=== PATIENT | male | born 1985 | race Caucasian/White ===

== ENCOUNTER 2018-08-27 10:32 | Emergency (ER) | payer SELFPAY ==
[2018-08-27 11:14] LABS: Absolute Lymphocytes (CBC) 2.3 K/uL (0.7-4.9); Absolute Monocytes 0.6 K/uL (0.1-1.3); Absolute Neutrophil 4.7 K/uL (1.8-8.0); Basophils % 0.9 % (0-1.3); Eosinophils % 0.8 % (0-4.4); Lymphocytes % 29.5 % (15.3-44.8); MPV 8.5 fL (7.6-11.3); Monocytes % 7.7 % (3.3-12.3); RBC Red Blood Cell Count 4.96 M/uL (4.33-5.43)
[2018-08-27] MEDS ORDERED: HYDROCODONE/APAP 7.5/325 MG TAB ONE (11:17)
[2018-08-27 11:28] LABS: Potassium 4.1 mmol/L (3.5-5.1)
--- NOTE | 2018-08-27 11:34 | RAD REPORT ---
EXAM DESCRIPTION: US - Scrotum Testicles - 08/27/2018 11:25 am CLINICAL HISTORY: scrotal pain COMPARISON: No comparisons FINDINGS: The right testicle 1.8 x 1.7 x 0.7 cm. No intratesticular masses or evidence of testicular torsion. The left testicle 1.5 x 1.5 x 0.8 cm.. No intratesticular masses or evidence of testicular torsion. Both testicles are small in size for age. No pathologic fluid collections. IMPRESSION: Both testicles appear small in size for age, without evidence of torsion or mass.
[2018-08-27 11:48] LABS: Urine Blood 2+ (NEG); Urine Glucose NEGATIVE (NEG); Urine Protein NEGATIVE (NEG)
--- NOTE | 2018-08-27 12:59 | ER ---
Nurse's Notes [facility] Name: Og Watters Age: 32 yrs Sex: Male : 1985 Arrival Date: 08/27/2018 Time: 10:36 Bed 14 Private MD: Diagnosis: Scrotal pain;Hematuria Presentation: 08/27 10:41 Presenting complaint: Patient states: "I had some blood in my urine on Monday and aa5 today". Pt states "I also had a couple of episodes of blood in the stool today". Pt also c/o of testicular pain with touch. 10:41 Transition of care: patient was not received from another setting of care. Onset of aa5 symptoms was August 2018. Risk Assessment: Do you want to hurt yourself or someone else? Patient reports no desire to harm self or others. Initial Sepsis Screen: Does the patient meet any 2 criteria? No. Patient's initial sepsis screen is negative. Does the patient have a suspected source of infection? No. Patient's initial sepsis screen is negative. Care prior to arrival: None. 10:41 Acuity: NESTOR 3 aa5 10:41 Method Of Arrival: Ambulatory aa5 Historical: - Allergies: 10:49 PENICILLINS; aa5 10:49 Augmentin; aa5 10:49 Amoxicillin; aa5 - PMHx: 10:49 "spots in prostate"; aa5 - PSHx: 10:49 Appendectomy; left knee; aa5 - Immunization history:: Adult Immunizations unknown. - Social history:: Smoking status: Patient uses tobacco products, smokes one-half pack cigarettes per day. - Ebola Screening: : No symptoms or risks identified at this time. Screenin:16 Abuse screen: Denies threats or abuse. Denies injuries from another. Nutritional jl7 screening: No deficits noted. Tuberculosis screening: No symptoms or risk factors identified. Fall Risk None identified. Assessment: 11:16 General: Appears in no apparent distress. uncomfortable, Behavior is calm, cooperative, jl7 appropriate for age. Pain: Complains of pain in scrotum Pain currently is 7 out of 10 on a pain scale. Pain began years ago. Is continuous. Neuro: Level of Consciousness is awake, alert, obeys commands, Oriented to person, place, time, situation. Cardiovascular: Patient's skin is warm and dry. Respiratory: Airway is patent Respiratory effort is even, unlabored, Respiratory pattern is regular, symmetrical. GI: No signs and/or symptoms were reported involving the gastrointestinal system. : Reports pain in bilateral testicle, blood in urine. EENT: No signs and/or symptoms were reported regarding the EENT system. Derm: Skin is pink, warm \\T\\ dry. Musculoskeletal: No signs and/or symptoms reported regarding the musculoskeletal system. 12:00 Reassessment: Patient appears in no apparent distress at this time. Patient and/or jl7 family updated on plan of care and expected duration. Pain level reassessed. Patient is alert, oriented x 3, equal unlabored respirations, skin warm/dry/pink. Patient states symptoms have improved. 13:00 Reassessment: Patient appears in no apparent distress at this time. No changes from jl7 previously documented assessment. Patient and/or family updated on plan of care and expected duration. Pain level reassessed. Patient is alert, oriented x 3, equal unlabored respirations, skin warm/dry/pink. Vital Signs: 10:43 BP 150 / 89; Pulse 54; Resp 16 S; Temp 97.9(TE); Pulse Ox 100% on R/A; Weight 77.11 kg aa5 (R); Height 5 ft. 8 in. (172.72 cm) (R); Pain 0/10; 12:00 BP 120 / 77; Pulse 49; Resp 16 S; Pulse Ox 98% on R/A; Pain 5/10; jl7 13:00 BP 117 / 69; Pulse 62; Resp 16 S; Pulse Ox 98% on R/A; jl7 10:43 Body Mass Index 25.85 (77.11 kg, 172.72 cm) aa5 ED Course: 10:36 Patient arrived in ED. rg4 10:37 Alvin Johnson MD is Attending Physician. kdr 10:41 Arm band placed on Patient placed in an exam room, on a stretcher. aa5 10:46 Pierre Conner RN is Primary Nurse. jl7 10:48 Triage completed. aa5 11:16 Patient has correct armband on for positive identification. Placed in gown. Bed in low jl7 position. Call light in reach. Side rails up X 1. Pulse ox on. NIBP on. Warm blanket given. 11:16 Initial lab(s) drawn, by me, sent to lab. Urine collected: clean catch specimen, clear. jl7 11:23 Scrotum Testicles US In Process Unspecified. EDMS 11:30 Served as a scrum master during rectal exam. jl7 11:32 Urine Dipstick-Ancillary Sent. 5 11:32 Urine Dipstick--Ancillary (enter results) Sent. [facility] 12:56 Radha Lyles MD is Referral Physician. [facility] 13:32 Patient did not have IV access during this emergency room visit. jl7 Administered Medications: 11:09 Drug: [place] (7.5 mg-325 mg) 1 tabs Route: PO; jl7 12:00 Follow up: Response: No adverse reaction; Pain is decreased jl7 13:00 Drug: Bactrim (160 mg-800 mg (DS) 1 tablet Route: PO; jl7 13:30 Follow up: Response: No adverse reaction [facility] Outcome: 12:57 Discharge ordered by . [facility] 13:32 Discharged to home ambulatory. [facility] 13:32 Condition: stable 13:32 Discharge instructions given to patient, Instructed on discharge instructions, follow up and referral plans. medication usage, Demonstrated understanding of instructions, follow-up care, medications, Prescriptions given X 2. 13:33 Patient left the ED. jl7 Signatures: Dispatcher [employer] [facility] Alvin Johnson MD MD kdr Calderon, Audri, RN RN [email or web address] Liz Godfrey Maria [email or web address] Leal, Jahala, RN RN jl7
--- NOTE | 2018-08-27 12:59 | EDPHYS ---
Physician Documentation [facility] Name: Og Watters Age: 32 yrs Sex: Male : 1985 Arrival Date: 08/27/2018 Time: 10:36 Bed 14 Private MD: ED Physician Alvin Johnson HPI: 08/27 10:56 This 32 yrs old Male presents to ER via Ambulatory with complaints of Blood kdr In Urine. 10:56 The patient presents with scrotal pain, of both sides, in the area of the epidydimis, kdr without swelling, without erythema, tenderness, that is moderate, of the left inguinal area, in the area of the epidydimis. Onset: The symptoms/episode began/occurred gradually, 3 day(s) ago. Modifying factors: The symptoms are alleviated by nothing, the symptoms are aggravated by movement, pressure, urinating. Associated signs and symptoms: The patient has no apparent associated signs or symptoms. Severity of symptoms: At their worst the symptoms were moderate, severe, just prior to arrival, in the emergency department the symptoms are unchanged. The patient has experienced similar episodes in the past, a few times. The patient has not recently seen a physician. Has history of prostate issues about five years ago - benign - non-cancerous findings. Historical: - Allergies: 10:49 PENICILLINS; aa5 10:49 Augmentin; aa5 10:49 Amoxicillin; aa5 - PMHx: 10:49 "spots in prostate"; aa5 - PSHx: 10:49 Appendectomy; left knee; aa5 - Immunization history:: Adult Immunizations unknown. - Social history:: Smoking status: Patient uses tobacco products, smokes one-half pack cigarettes per day. - Ebola Screening: : No symptoms or risks identified at this time. ROS: 10:56 Constitutional: Negative for fever, chills, and weight loss, Eyes: Negative for injury, kdr pain, redness, and discharge, ENT: Negative for injury, pain, and discharge, Neck: Negative for injury, pain, and swelling, Cardiovascular: Negative for chest pain, palpitations, and edema, Respiratory: Negative for shortness of breath, cough, wheezing, and pleuritic chest pain, Abdomen/GI: Negative for abdominal pain, nausea, vomiting, diarrhea, and constipation, Back: Negative for injury and pain, MS/Extremity: Negative for injury and deformity, Skin: Negative for injury, rash, and discoloration, Neuro: Negative for headache, weakness, numbness, tingling, and seizure activity. Psych: Negative for depression, anxiety, suicide ideation, homicidal ideation, and hallucinations, Allergy/Immunology: Negative for hives, rash, and allergies, Endocrine: Negative for neck swelling, polydipsia, polyuria, polyphagia, and marked weight changes, Hematologic/Lymphatic: Negative for swollen nodes, abnormal bleeding, and unusual bruising. 10:56 : Positive for urinary symptoms, hematuria, burning with urination, difficulty urinating, testicular pain Negative for small amounts, hematuria, pelvic pain, flank pain, bladder incontinence, foul smelling urine, penile discharge. Exam: 10:56 Constitutional: This is a well developed, well nourished patient who is awake, alert, kdr and in no acute distress. Head/Face: Normocephalic, atraumatic. Chest/axilla: Normal chest wall appearance and motion. Nontender with no deformity. No lesions are appreciated. Cardiovascular: Regular rate and rhythm with a normal S1 and S2. No gallops, murmurs, or rubs. Normal PMI, no JVD. No pulse deficits. Respiratory: Lungs have equal breath sounds bilaterally, clear to auscultation and percussion. No rales, rhonchi or wheezes noted. No increased work of breathing, no retractions or nasal flaring. Abdomen/GI: Soft, non-tender, with normal bowel sounds. No distension or tympany. No guarding or rebound. No evidence of tenderness throughout. Back: No spinal tenderness. No costovertebral tenderness. Full range of motion. 10:56 : CVA tenderness, is absent, Male external genitalia: Circumcision noted. penile discharge, is absent, swelling: is not appreciated, tenderness, is palpated in the left inguinal area, of the epididymis area, that is moderate. Vital Signs: 10:43 BP 150 / 89; Pulse 54; Resp 16 S; Temp 97.9(TE); Pulse Ox 100% on R/A; Weight 77.11 kg aa5 (R); Height 5 ft. 8 in. (172.72 cm) (R); Pain 0/10; 12:00 BP 120 / 77; Pulse 49; Resp 16 S; Pulse Ox 98% on R/A; Pain 5/10; jl7 13:00 BP 117 / 69; Pulse 62; Resp 16 S; Pulse Ox 98% on R/A; jl7 10:43 Body Mass Index 25.85 (77.11 kg, 172.72 cm) aa5 MDM: 10:56 Data reviewed: vital signs, nurses notes, lab test result(s), radiologic studies. kdr Counseling: I had a detailed discussion with the patient and/or guardian regarding: the historical points, exam findings, and any diagnostic results supporting the discharge/admit diagnosis, lab results, radiology results. 12:54 Physician consultation: Radha Lyles MD was contacted at 12:54, regarding patient's kdr condition, need to evaluate the patient as soon as possible, outpatient follow-up, and will see patient in office, This week. 12:57 Patient medically screened. kdr 08/27 10:56 Order name: CBC with Diff; Complete Time: 12:49 kdr 08/27 10:56 Order name: Chem 7; Complete Time: 12:49 kdr 08/27 10:56 Order name: Scrotum Testicles US; Complete Time: 12:49 kdr 08/27 11:09 Order name: Urine Dipstick--Ancillary (enter results) bd 08/27 11:09 Order name: Urine Dipstick-Ancillary; Complete Time: 12:49 EDMS 08/27 10:45 Order name: Urine Dipstick-Ancillary (obtain specimen); Complete Time: 11:03 kdr Administered Medications: 11:09 Drug: [place] (7.5 mg-325 mg) 1 tabs Route: PO; jl7 12:00 Follow up: Response: No adverse reaction; Pain is decreased jl7 13:00 Drug: Bactrim (160 mg-800 mg (DS) 1 tablet Route: PO; jl7 13:30 Follow up: Response: No adverse reaction jl7 Disposition: 08/27/18 12:57 Discharged to Home. Impression: Scrotal pain, Hematuria. - Condition is Stable. - Discharge Instructions: Hematuria, Adult. - Prescriptions for Tylenol- Codeine #3 300-30 mg Oral Tablet - take 2 tablets by ORAL route every 6 hours As needed; 15 tablet. Bactrim DS 800- 160 mg Oral Tablet - take 1 tablet by ORAL route every 12 hours for 10 days; 20 tablet. - Medication Reconciliation Form, Thank You Letter, Antibiotic Education, Prescription Opioid Use form. - Follow up: Radha Llyes MD; When: 2 - 3 days; Reason: If symptoms return, Further diagnostic work-up, Recheck today's complaints, Continuance of care, Re-evaluation by your physician. - Problem is new. - Symptoms have improved. Signatures: Dispatcher [employer] EDMS Alvin Johnson MD MD [facility] aKrmen Mcdaniels RN RN aa5 Pierre Conner RN RN jl7 Corrections: (The following items were deleted from the chart) 13:33 12:57 08/27/2018 12:57 Discharged to Home. Impression: Scrotal pain; Hematuria. jl7 Condition is Stable. Forms are Medication Reconciliation Form, Thank You Letter, Antibiotic Education, Prescription Opioid Use. Follow up: Radha Lyles; When: 2 - 3 days; Reason: If symptoms return, Further diagnostic work-up, Recheck today's complaints, Continuance of care, Re-evaluation by your physician. Problem is new. Symptoms have improved. kdr
[2018-08-27] MEDS ORDERED: SMZ./TMP. 800/160 MG TABLET ONE (13:11)
== END 2018-08-27 13:33 | disposition home or self-care (01) ==
LOC: ER 10:32
DX: N50.82 Scrotal pain (principal); R31.9 Hematuria, unspecified; Z88.0 Allergy status to penicillin; F17.210 Nicotine dependence, cigarettes, uncomplicated
CPT/HCPCS: 36415; 76870; 80048; 81003; 85025; 99284

== ENCOUNTER 2019-01-13 12:34 | Emergency (ER) | payer SELFPAY ==
--- OUTSIDE RECORDS SUMMARY | 2019-01-13 12:36 | XMS REPORT ---
:1985 [facility] [address] [place] [address] Care Team Providers Name Role Phone Unavailable Unavailable Unavailable Problems This patient has no known problems. Allergies, Adverse Reactions, Alerts This patient has no known allergies or adverse reactions. Medications This patient has no known medications. Encounters Start End Encounter Admission Attending Care Care Encounter Date/Time Date/Time Type Type Clinicians Facility Department ID 2016-10-19 2016-10-25 Outpatient [facility] [id number] 00:00:00 00:00:00 2016-01-22 2016-09-29 Outpatient [facility] [id number] 00:00:00 00:00:00
--- NOTE | 2019-01-13 12:57 | EDPHYS ---
Physician Documentation [facility] Name: Og Watters Age: 33 yrs Sex: Male : 1985 Arrival Date: 01/13/2019 Time: 12:36 Bed 19 Private MD: Unknown, Unknown ED Physician Ck Mark HPI: 01/13 12:54 This 33 yrs old Male presents to ER via Unassigned with complaints of Rash. kb 12:54 The patient's rash thought to be caused by an unknown cause. The rash is located on the kb left arm and right arm and abdomen and chest and back and face. The rash can be described as erythematous. Onset: The symptoms/episode began/occurred 1 week(s) ago. Associated signs and symptoms: Pertinent positives: itching. Severity of symptoms: At their worst the symptoms were moderate in the emergency department the symptoms are unchanged. Treatment given at home: Benadryl. The patient has not experienced similar symptoms in the past. The patient has not recently seen a physician. Historical: - Allergies: 12:56 PENICILLINS; em 12:56 Augmentin; em 12:56 Amoxicillin; em - Home Meds: 12:56 None [Active]; em - PMHx: 12:56 "spots in prostate"; em - PSHx: 12:56 Appendectomy; em - Immunization history:: Flu vaccine is not up to date. - Social history:: Smoking status: Patient uses tobacco products, smokes one-half pack cigarettes per day. - Ebola Screening: : Patient negative for fever greater than or equal to 101.5 degrees Fahrenheit, and additional compatible Ebola Virus Disease symptoms Patient denies exposure to infectious person Patient denies travel to an Ebola-affected area in the 21 days before illness onset No symptoms or risks identified at this time. ROS: 12:52 Constitutional: Negative for fever, chills, and weight loss, ENT: Negative for injury, kb pain, and discharge, Neck: Negative for injury, pain, and swelling, Cardiovascular: Negative for chest pain, palpitations, and edema, Respiratory: Negative for shortness of breath, cough, wheezing, and pleuritic chest pain, Abdomen/GI: Negative for abdominal pain, nausea, vomiting, diarrhea, and constipation, Back: Negative for injury and pain, : Negative for injury, bleeding, discharge, and swelling, MS/Extremity: Negative for injury and deformity, Neuro: Negative for headache, weakness, numbness, tingling, and seizure. 12:52 Skin: Positive for rash, of the face, back, chest, abdomen, right arm and left arm. Exam: 12:52 Constitutional: This is a well developed, well nourished patient who is awake, alert, kb and in no acute distress. Head/Face: Normocephalic, atraumatic. ENT: Nares patent. No nasal discharge, no septal abnormalities noted. Tympanic membranes are normal and external auditory canals are clear. Oropharynx with no redness, swelling, or masses, exudates, or evidence of obstruction, uvula midline. Mucous membranes moist. Neck: Trachea midline, no thyromegaly or masses palpated, and no cervical lymphadenopathy. Supple, full range of motion without nuchal rigidity, or vertebral point tenderness. No Meningismus. Chest/axilla: Normal chest wall appearance and motion. Nontender with no deformity. No lesions are appreciated. Cardiovascular: Regular rate and rhythm with a normal S1 and S2. No gallops, murmurs, or rubs. Normal PMI, no JVD. No pulse deficits. Respiratory: Lungs have equal breath sounds bilaterally, clear to auscultation and percussion. No rales, rhonchi or wheezes noted. No increased work of breathing, no retractions or nasal flaring. Abdomen/GI: Soft, non-tender, with normal bowel sounds. No distension or tympany. No guarding or rebound. No evidence of tenderness throughout. MS/ Extremity: Pulses equal, no cyanosis. Neurovascular intact. Full, normal range of motion. Neuro: Awake and alert, GCS 15, oriented to person, place, time, and situation. Cranial nerves II-XII grossly intact. Motor strength 5/5 in all extremities. Sensory grossly intact. Cerebellar exam normal. Normal gait. 12:52 Skin: consistent with contact dermatitis, on the left arm and right arm and abdomen and chest and back and face. Vital Signs: 12:56 BP 123 / 80; Pulse 71; Resp 18; Temp 98.6(O); Pulse Ox 97% on R/A; Weight 74.84 kg; em Height 5 ft. 7 in. (170.18 cm); Pain 0/10; 12:56 Body Mass Index 25.84 (74.84 kg, 170.18 cm) em MDM: 12:48 Patient medically screened. kb 12:52 Data reviewed: vital signs, nurses notes. Data interpreted: Pulse oximetry: on room air kb is 100 %. Interpretation: normal. Counseling: I had a detailed discussion with the patient and/or guardian regarding: the historical points, exam findings, and any diagnostic results supporting the discharge/admit diagnosis, the need for outpatient follow up, a family practitioner, to return to the emergency department if symptoms worsen or persist or if there are any questions or concerns that arise at home. Administered Medications: 13:00 Drug: predniSONE 60 mg Route: PO; em 13:08 Follow up: Response: Medication administered at discharge. em 13:00 Drug: Pepcid 20 mg Route: PO; em 13:08 Follow up: Response: Medication administered at discharge. em 13:00 Drug: Benadryl 25 mg Route: PO; em 13:08 Follow up: Response: Medication administered at discharge. em Disposition: 15:15 Co-signature as Attending Physician, Ck Mark MD. rn Disposition: 01/13/19 12:56 Discharged to Home. Impression: Allergic contact dermatitis. - Condition is Stable. - Discharge Instructions: Contact Dermatitis, [id number]. - Prescriptions for Pepcid 20 mg Oral Tablet - take 1 tablet by ORAL route every 12 hours for 5 days; 10 tablet. Prednisone 20 mg Oral Tablet - take 1 tablet by ORAL route once daily for 5 days; 5 tablet. - Medication Reconciliation Form, Thank You Letter, Antibiotic Education, Prescription Opioid Use form. - Follow up: Emergency Department; When: As needed; Reason: Worsening of condition. Follow up: Private Physician; When: 2 - 3 days; Reason: Recheck today's complaints, Continuance of care, Re-evaluation by your physician. Signatures: Renetta Johnston FNP-Amanda ORIENTOR-Tristanb Eliecer Charles, [employer] INSERTER PROMOTIONAL ITEM em Ck Mark MD MD rn clinical: (The following items were deleted from the chart) 13:09 12:56 01/13/2019 12:56 Discharged to Home. Impression: Allergic contact dermatitis. em Condition is Stable. Forms are Medication Reconciliation Form, Thank You Letter, Antibiotic Education, Prescription Opioid Use. Follow up: Emergency Department; When: As needed; Reason: Worsening of condition. Follow up: Private Physician; When: 2 - 3 days; Reason: Recheck today's complaints, Continuance of care, Re-evaluation by your physician. kb
--- NOTE | 2019-01-13 12:57 | ER ---
Nurse's Notes [facility] Name: Og Watters Age: 33 yrs Sex: Male : 1985 Arrival Date: 01/13/2019 Time: 12:36 Bed 19 Private MD: Unknown, Unknown Diagnosis: Allergic contact dermatitis Presentation: 01/13 12:54 Presenting complaint: Patient states: itchy rash on face, stomach, ok. arms that has em been there for 1 week, OTC products have made it worse. Transition of care: patient was not received from another setting of care. Onset of symptoms was January 13, 2019. Risk Assessment: Do you want to hurt yourself or someone else? Patient reports no desire to harm self or others. Initial Sepsis Screen: Does the patient meet any 2 criteria? No. Patient's initial sepsis screen is negative. Does the patient have a suspected source of infection? No. Patient's initial sepsis screen is negative. Care prior to arrival: None. 12:54 Method Of Arrival: Ambulatory em 12:54 Acuity: NESTOR 5 ss Historical: - Allergies: 12:56 PENICILLINS; em 12:56 Augmentin; em 12:56 Amoxicillin; em - Home Meds: 12:56 None [Active]; em - PMHx: 12:56 "spots in prostate"; em - PSHx: 12:56 Appendectomy; em - Immunization history:: Flu vaccine is not up to date. - Social history:: Smoking status: Patient uses tobacco products, smokes one-half pack cigarettes per day. - Ebola Screening: : Patient negative for fever greater than or equal to 101.5 degrees Fahrenheit, and additional compatible Ebola Virus Disease symptoms Patient denies exposure to infectious person Patient denies travel to an Ebola-affected area in the 21 days before illness onset No symptoms or risks identified at this time. Screenin:58 Abuse screen: Denies threats or abuse. Nutritional screening: No deficits noted. em Tuberculosis screening: No symptoms or risk factors identified. Fall Risk None identified. Assessment: 12:56 General: Appears in no apparent distress. comfortable, Behavior is calm, cooperative, em Denies fever. Pain: Denies pain. Neuro: Level of Consciousness is awake, alert, obeys commands, Oriented to person, place, time, situation, Appropriate for age. Cardiovascular: Capillary refill < 3 seconds Patient's skin is warm and dry. Respiratory: Airway is patent Respiratory effort is even, unlabored, Respiratory pattern is regular, symmetrical, Breath sounds are clear bilaterally. Denies shortness of breath. Derm: Skin is intact, is healthy with good turgor, Skin is pink, warm \\T\\ dry. Rash noted that is itchy, urticaria, on left arm and right arm and abdomen and chest and face. Musculoskeletal: Capillary refill < 3 seconds, Range of motion: intact in all extremities. Vital Signs: 12:56 BP 123 / 80; Pulse 71; Resp 18; Temp 98.6(O); Pulse Ox 97% on R/A; Weight 74.84 kg; em Height 5 ft. 7 in. (170.18 cm); Pain 0/10; 12:56 Body Mass Index 25.84 (74.84 kg, 170.18 cm) em ED Course: 12:36 Patient arrived in ED. ag5 12:36 Unknown, Unknown is Private Physician. ag5 12:48 Renetta Johnston FNP-C is [facility]. kb 12:48 Ck Mark MD is Attending Physician. kb 12:48 Reva Brannon RN is Primary Nurse. ss 12:56 Arm band placed on. em 12:58 Triage completed. ss 12:58 Patient has correct armband on for positive identification. Placed in gown. Bed in low em position. Adult w/ patient. 12:58 No provider procedures requiring assistance completed. Patient did not have IV access em during this emergency room visit. Administered Medications: 13:00 Drug: predniSONE 60 mg Route: PO; em 13:08 Follow up: Response: Medication administered at discharge. em 13:00 Drug: Pepcid 20 mg Route: PO; em 13:08 Follow up: Response: Medication administered at discharge. em 13:00 Drug: Benadryl 25 mg Route: PO; em 13:08 Follow up: Response: Medication administered at discharge. em Outcome: 12:56 Discharge ordered by . kb 13:07 Discharged to home ambulatory. em 13:07 Condition: stable 13:07 Discharge instructions given to patient, Instructed on discharge instructions, follow up and referral plans. medication usage, Demonstrated understanding of instructions, follow-up care, medications, Prescriptions given X 2. 13:09 Patient left the ED. em Signatures: Renetta Johnston FNP-C MUCKER OPERATOR-Ckb Eliecer Charles, INSTALLMENT ACCOUNT CHECKER INSTALLMENT ACCOUNT CHECKER em Reva Brannon, SU RN ss Oni Ruggiero ag5
[2019-01-13] MEDS ORDERED: DIPHENHYDRAMINE 25 MG TAB/CAP ONE (13:01)
[2019-01-13] MEDS ORDERED: FAMOTIDINE 20 MG TAB ONE (13:01)
[2019-01-13] MEDS ORDERED: predniSONE 20 MG TAB ONE (13:01)
[2019-01-13 15:36] VITALS: BP 123/80; TEMP 98.6; O2SAT 97
== END 2019-01-13 13:09 | disposition home or self-care (01) ==
LOC: ER 12:34
DX: L23.9 Allergic contact dermatitis, unspecified cause (principal); F17.210 Nicotine dependence, cigarettes, uncomplicated; Z88.0 Allergy status to penicillin; Z88.1 Allergy status to other antibiotic agents
CPT/HCPCS: 99283; J7512

== ENCOUNTER 2019-06-18 11:51 | Emergency (ER) | payer SELFPAY ==
--- OUTSIDE RECORDS SUMMARY | 2019-06-18 11:53 | XMS REPORT ---
:1985 [facility] Address [address] [place] [address] Care Team Providers Name Role Phone Unavailable Unavailable Unavailable Problems This patient has no known problems. Allergies, Adverse Reactions, Alerts This patient has no known allergies or adverse reactions. Medications This patient has no known medications. Encounters Start End Encounter Admission Attending Care Care Encounter Date/Time Date/Time Type Type Clinicians Facility Department ID 2016-10-19 2016-10-25 Outpatient [facility] [id number] 00:00:00 00:00:00 2016-01-22 2016-09-29 Outpatient [facility] [id number] 00:00:00 00:00:00
--- NOTE | 2019-06-18 13:12 | ER ---
Nurse's Notes [facility] Name: Og Watters Age: 33 yrs Sex: Male : 1985 Arrival Date: 06/18/2019 Time: 11:54 Bed 27 Private MD: Diagnosis: Periapical abscess without sinus Presentation: 06/18 11:59 Presenting complaint: Patient states: right lower jaw swollen, pt denies toothache, jl7 black broken off tooth noted. Transition of care: patient was not received from another setting of care. Onset of symptoms was June 17, 2019. Risk Assessment: Do you want to hurt yourself or someone else? Patient reports no desire to harm self or others. Initial Sepsis Screen: Does the patient meet any 2 criteria? No. Patient's initial sepsis screen is negative. Does the patient have a suspected source of infection? No. Patient's initial sepsis screen is negative. Care prior to arrival: None. 11:59 Method Of Arrival: Ambulatory [facility] 11:59 Acuity: NESTOR 4 jl7 Triage Assessment: 12:01 General: Appears in no apparent distress. uncomfortable, Behavior is calm, cooperative, jl7 appropriate for age. Pain: Complains of pain in mouth Pain currently is 7 out of 10 on a pain scale. Historical: - Allergies: 12:01 Amoxicillin; jl7 12:01 Augmentin; jl7 12:01 PENICILLINS; jl7 - Home Meds: 12:01 None [Active]; jl7 - PMHx: 12:01 "spots in prostate"; jl7 - PSHx: 12:01 Appendectomy; jl7 - Immunization history:: Adult Immunizations unknown. - Coronavirus screen:: The patient has NOT traveled to [place], [place], or [place] in the past 14 days. Proceed with normal triage process as indicated. - Social history:: Smoking status: Patient reports the use of cigarette tobacco products, smokes one pack cigarettes per day. - Ebola Screening: : No symptoms or risks identified at this time. Vital Signs: 12:01 BP 136 / 84; Pulse 55; Resp 17 S; Temp 98(TE); Pulse Ox 99% on R/A; Weight 81.65 kg jl7 (R); Height 5 ft. 7 in. (170.18 cm) (R); Pain 7/10; 12:01 Body Mass Index 28.19 (81.65 kg, 170.18 cm) 7 ED Course: 11:54 Patient arrived in ED. mr 12:01 Triage completed. jl7 12:01 Arm band placed on right wrist. jl7 12:36 Morgan Borrero PA is PHCP. jr8 12:36 Feliciano Clakr MD is Attending Physician. jr8 13:14 No provider procedures requiring assistance completed. Patient did not have IV access ss during this emergency room visit. Administered Medications: No medications were administered Outcome: 13:10 Discharge ordered by . jr8 13:14 Discharged to home ambulatory, with family. ss 13:14 Condition: good 13:14 Discharge instructions given to patient, family, Instructed on discharge instructions, follow up and referral plans. medication usage, Demonstrated understanding of instructions, follow-up care, medications, Prescriptions given X 2. 13:14 Patient left the ED. ss Signatures: Isa Arana mr ClaudiakorinaReva RN RN Morgan Borrero PA PA 8 Pierre Conner RN RN jl7
--- NOTE | 2019-06-18 13:13 | EDPHYS ---
Physician Documentation [facility] Name: Og Watters Age: 33 yrs Sex: Male : 1985 Arrival Date: 06/18/2019 Time: 11:54 Bed 27 Private MD: ED Physician Feliciano Clark HPI: 06/18 13:06 This 33 yrs old Male presents to ER via Ambulatory with complaints of Facial jr8 Swelling. 13:06 The patient presents with pain, swelling. The problem is located in the left lower jaw. jr8 Onset: The symptoms/episode began/occurred acutely, today. Duration: The symptoms are continuous. Modifying factors: The symptoms are alleviated by nothing, the symptoms are aggravated by chewing, talking. Associated signs and symptoms: The patient has no apparent associated signs or symptoms. Severity of symptoms: At their worst the symptoms were mild, in the emergency department the symptoms are unchanged. The patient has not experienced similar symptoms in the past. The patient has not recently seen a physician. 13:06 History of poor dentition. Stated that he thinks he may have a bad tooth . jr8 Historical: - Allergies: 12:01 Amoxicillin; jl7 12:01 Augmentin; jl7 12:01 PENICILLINS; jl7 - Home Meds: 12:01 None [Active]; jl7 - PMHx: 12:01 "spots in prostate"; jl7 - PSHx: 12:01 Appendectomy; jl7 - Immunization history:: Adult Immunizations unknown. - Coronavirus screen:: The patient has NOT traveled to [place], [place], or [place] in the past 14 days. Proceed with normal triage process as indicated. - Social history:: Smoking status: Patient reports the use of cigarette tobacco products, smokes one pack cigarettes per day. - Ebola Screening: : No symptoms or risks identified at this time. ROS: 13:06 Eyes: Negative for injury, pain, redness, and discharge, Neck: Negative for injury, jr8 pain, and swelling, Cardiovascular: Negative for chest pain, palpitations, and edema, Respiratory: Negative for shortness of breath, cough, wheezing, and pleuritic chest pain, Abdomen/GI: Negative for abdominal pain, nausea, vomiting, diarrhea, and constipation, Back: Negative for injury and pain, MS/Extremity: Negative for injury and deformity, Skin: Negative for injury, rash, and discoloration, Neuro: Negative for headache, weakness, numbness, tingling, and seizure. 13:06 ENT: Positive for dental pain, Negative for ear pain, rhinorrhea, sinus congestion, sinus pain, sore throat, difficulty swallowing, difficulty handling secretions, hoarseness. Exam: 13:06 Eyes: Pupils equal round and reactive to light, extra-ocular motions intact. Lids and jr8 lashes normal. Conjunctiva and sclera are non-icteric and not injected. Cornea within normal limits. Periorbital areas with no swelling, redness, or edema. Neck: Trachea midline, no thyromegaly or masses palpated, and no cervical lymphadenopathy. Supple, full range of motion without nuchal rigidity, or vertebral point tenderness. No Meningismus. Cardiovascular: Regular rate and rhythm with a normal S1 and S2. No gallops, murmurs, or rubs. Normal PMI, no JVD. No pulse deficits. Respiratory: Lungs have equal breath sounds bilaterally, clear to auscultation and percussion. No rales, rhonchi or wheezes noted. No increased work of breathing, no retractions or nasal flaring. Abdomen/GI: Soft, non-tender, with normal bowel sounds. No distension or tympany. No guarding or rebound. No evidence of tenderness throughout. Skin: Warm, dry with normal turgor. Normal color with no rashes, no lesions, and no evidence of cellulitis. MS/ Extremity: Pulses equal, no cyanosis. Neurovascular intact. Full, normal range of motion. Neuro: Awake and alert, GCS 15, oriented to person, place, time, and situation. Cranial nerves II-XII grossly intact. Motor strength 5/5 in all extremities. Sensory grossly intact. Cerebellar exam normal. Normal gait. 13:06 ENT: Exam is negative for earache, ear discharge, TM abnormalities, nasal discharge, Mouth: Lips: moist, Oral mucosa: pink and intact, moist, Gums: pink, Tongue: is moist, Posterior pharynx: Airway: patent, Tonsils: are normal in appearance, Uvula: midline, non-edematous, no erythema, swelling, is not appreciated, erythema, is not appreciated, Dental exam: dental caries, that is severe, diffusely, gum swelling, that is mild, specifically in the lower left first bicuspid (#21), pain, that is mild, specifically in the lower left first bicuspid (#21), mild swelling noted to external lower left jaw. Vital Signs: 12:01 BP 136 / 84; Pulse 55; Resp 17 S; Temp 98(TE); Pulse Ox 99% on R/A; Weight 81.65 kg jl7 (R); Height 5 ft. 7 in. (170.18 cm) (R); Pain 7/10; 12:01 Body Mass Index 28.19 (81.65 kg, 170.18 cm) jl7 MDM: 12:37 Patient medically screened. [facility] 13:06 Data reviewed: vital signs, nurses notes, and as a result, I will discharge patient. jr8 Data interpreted: Pulse oximetry: on room air is 99 %. Interpretation: normal. Counseling: I had a detailed discussion with the patient and/or guardian regarding: the historical points, exam findings, and any diagnostic results supporting the discharge/admit diagnosis, the need for outpatient follow up, a dentist, to return to the emergency department if symptoms worsen or persist or if there are any questions or concerns that arise at home. Administered Medications: No medications were administered Disposition: 06/18/19 13:10 Discharged to Home. Impression: Periapical abscess without sinus. - Condition is Stable. - Discharge Instructions: Dental Abscess, Dental Pain. - Prescriptions for Clindamycin HCl 300 mg Oral Capsule - take 1 capsule by ORAL route every 6 hours for 10 days; 40 capsule. Ibuprofen 800 mg Oral Tablet - take 1 tablet by ORAL route every 12 hours As needed take with food; 20 tablet. - Medication Reconciliation Form, Thank You Letter, Antibiotic Education, Prescription Opioid Use form. - Follow up: Private Physician; When: 1 week; Reason: If symptoms return, Recheck today's complaints, Continuance of care, Re-evaluation by your physician. - Problem is new. - Symptoms have improved. Addendum: 06/20/2019 08:02 Co-signature as Attending Physician, Feliciano Clark MD I agree with the assessment and c geramin plan of care. Signatures: Feliciano Clark MD MD cha Smirch, Shelby, RN RN ss Roszak, Josh, PA PA jr8 Pierre Conner RN RN jl7 Corrections: (The following items were deleted from the chart) 06/18 13:14 13:10 06/18/2019 13:10 Discharged to Home. Impression: Periapical abscess without ss sinus. Condition is Stable. Forms are Medication Reconciliation Form, Thank You Letter, Antibiotic Education, Prescription Opioid Use. Follow up: Private Physician; When: 1 week; Reason: If symptoms return, Recheck today's complaints, Continuance of care, Re-evaluation by your physician. Problem is new. Symptoms have improved. jr8
[2019-06-20 06:28] VITALS: TEMP 98
[2019-06-20 06:56] VITALS: BP 117/79; O2SAT 99
== END 2019-06-18 13:14 | disposition home or self-care (01) ==
LOC: ER 11:51
DX: K04.7 Periapical abscess without sinus (principal); Z88.0 Allergy status to penicillin; Z88.1 Allergy status to other antibiotic agents
CPT/HCPCS: 99282